=== PATIENT | male | born 1980 ===

== ENCOUNTER 2017-09-14 20:54 | Emergency (ER) | payer SELFPAY ==
--- NOTE | 2017-09-14 21:29 | ED PDOC ---
Arrival/HPI - General Chief Complaint: Alcohol Ingestion Time Seen by Provider: 09/14/17 21:19 Historian: Patient - History of Present Illness Narrative History of Present Illness (Text): 09/14/17 21:20 Sravan Fernandez who presents to the Emergency department brought in by EMS for public intoxication tonight. Patient found inebriated outside, admits to drinking alcohol. Limited HPI and ROS secondary to patient's intoxication. Time/Duration: Other (tonight) Symptom Onset: Gradual Symptom Course: Unchanged Activities at Onset: Light Context: Street Past Medical History - Provider Review Nursing Documentation Reviewed: Yes - Psychiatric Hx Substance Use: No Family/Social History - Physician Review Nursing Documentation Reviewed: Yes Family/Social History: Unknown Family HX Smoking Status: Unknown If Ever Smoked Hx Alcohol Use: Yes Hx Substance Use: No Allergies/Home Meds Allergies/Adverse Reactions: Allergies Unobtainable Allergy (Verified 09/14/17 21:09) Home Medications: Home Meds Medication Instructions Recorded Confirmed No Known Home Med 09/15/17 09/15/17 Review of Systems - Review of Systems Systems not reviewed;Unavailable: Intoxicated Physical Exam Vital Signs Reviewed: Yes Vital Signs Temp Pulse Resp BP Pulse Ox 09/15/17 05:00 72 16 112/68 99 09/15/17 01:00 82 16 115/74 99 09/14/17 21:34 98.8 F 102 H 16 117/81 97 Temperature: Afebrile Blood Pressure: Normal Pulse: Regular Respiratory Rate: Normal Appearance: Positive for: Well-Appearing, Non-Toxic, Comfortable Pain Distress: None - Systems Exam Head: Present: Atraumatic, Normocephalic Pupils: Present: PERRL Extroacular Muscles: Present: EOMI Conjunctiva: Present: Normal Mouth: Present: Moist Mucous Membranes Neck: Present: Normal Range of Motion Respiratory/Chest: Present: Clear to Auscultation, Good Air Exchange. No: Respiratory Distress, Accessory Muscle Use Cardiovascular: Present: Regular Rate and Rhythm, Normal S1, S2. No: Murmurs Abdomen: Present: Normal Bowel Sounds. No: Tenderness, Distention, Peritoneal Signs Back: Present: Normal Inspection Upper Extremity: Present: Normal Inspection. No: Cyanosis, Edema Lower Extremity: Present: Normal Inspection. No: Edema Neurological: Present: GCS=15, CN II-XII Intact Skin: Present: Warm, Dry, Normal Color. No: Rashes Psychiatric: Present: Intoxicated Medical Decision Making ED Course and Treatment: 09/14/17 21:20 Impression: Sravan Fernandez brought in for alcohol intoxication tonight. Differential Diagnosis included but are not limited to: alcohol intoxication Plan: -- Reassess and disposition Progress Notes: 09/15/17 05:50 Pt awake, alert, ambulating with steady gait. In stable condition, clinically sober. Pt stable for d/c. - Scribe Statement The provider has reviewed the documentation as recorded by the Scribchiquita Quiroz All medical record entries made by the Scribe were at my direction and personally dictated by me. I have reviewed the chart and agree that the record accurately reflects my personal performance of the history, physical exam, medical decision making, and the department course for this patient. I have also personally directed, reviewed, and agree with the discharge instructions and disposition. Disposition/Present on Arrival - Present on Arrival Any Indicators Present on Arrival: No History of DVT/PE: No History of Uncontrolled Diabetes: No Urinary Catheter: No History of Decub. Ulcer: No History Surgical Site Infection Following: None - Disposition Have Diagnosis and Disposition been Completed?: Yes Diagnosis: Alcohol intoxication Disposition: HOME/ ROUTINE Disposition Time: 05:52 Patient Plan: Discharge Condition: GOOD Discharge Instructions (ExitCare): Alcohol Intoxication (ED) Referrals: Alcoholics Anonymous [Outside] - Follow up with primary Forms: [employer] (Hebrew)
[2017-09-14 21:35] VITALS: RESP 16; TEMP 98.8
[2017-09-15 06:02] VITALS: O2SAT 99
[2017-09-15 06:03] VITALS: BP 112/68; PULSE 72
== END 2017-09-15 06:30 | disposition home or self-care (01) ==
LOC: ED 20:54
DX: F10.129 Alcohol abuse with intoxication, unspecified (principal); Y90.9 Presence of alcohol in blood, level not specified

== ENCOUNTER 2017-09-24 01:01 | Emergency (ER) | payer SELFPAY ==
[2017-09-24 01:49] VITALS: RESP 18; TEMP 98.3; BMI 25.7
--- NOTE | 2017-09-24 02:09 | ED PDOC ---
Arrival/HPI - General Chief Complaint: Headache Time Seen by Provider: 09/24/17 01:08 Historian: Patient - History of Present Illness Narrative History of Present Illness (Text): 09/24/17 02:09 John Brown is a 36 year old male, whose past medical history includes alcohol abuse, who presents to the Emergency department complaining of bilateral ear pain and headache since yesterday. Patient denies any fever, chills, neck pain, dizziness, vision changes, rhinorrhea, sore throat, chest pain, nausea, vomiting, diarrhea, back pain, or any other complaints. Time/Duration: Other (yesterday) Symptom Onset: Gradual Symptom Course: Unchanged Activities at Onset: Light Past Medical History - Provider Review Nursing Documentation Reviewed: Yes - Psychiatric Hx Substance Use: No Family/Social History - Physician Review Nursing Documentation Reviewed: Yes Family/Social History: Unknown Family HX Smoking Status: Light Smoker < 10 Cigarettes Daily Hx Alcohol Use: Yes Frequency of alcohol use: Daily Hx Substance Use: No Allergies/Home Meds Allergies/Adverse Reactions: Allergies No Known Allergies Allergy (Verified 09/24/17 01:29) Review of Systems - Physician Review All systems were reviewed & negative as marked: Yes - Review of Systems Constitutional: Normal. absent: Fevers Eyes: Normal ENT: Other (+bilateral ear pain) Respiratory: Normal. absent: SOB, Cough Cardiovascular: Normal. absent: Chest Pain Gastrointestinal: Normal. absent: Abdominal Pain, Diarrhea, Nausea, Vomiting Genitourinary Male: Normal. absent: Dysuria, Frequency, Hematuria, Urinary Output Changes Musculoskeletal: Normal. absent: Back Pain, Neck Pain Skin: Normal. absent: Rash Neurological: Headache. absent: Dizziness Endocrine: Normal Hemo/Lymphatic: Normal Psychiatric: Normal Physical Exam Vital Signs Reviewed: Yes Vital Signs Temp Pulse Resp BP Pulse Ox 09/24/17 01:35 98.3 F 88 18 154/107 H 100 Temperature: Afebrile Blood Pressure: Hypertensive Pulse: Regular Respiratory Rate: Normal Appearance: Positive for: Well-Appearing, Non-Toxic, Comfortable Pain Distress: None Mental Status: Positive for: Alert and Oriented X 3 - Systems Exam Head: Present: Atraumatic, Normocephalic Pupils: Present: PERRL Extroacular Muscles: Present: EOMI Conjunctiva: Present: Normal Ears: Present: Erythema (Erythema to bilateral ). No: TM Bulging, Fluid Mouth: Present: Moist Mucous Membranes Pharnyx: Present: Normal. No: ERYTHEMA, EXUDATE, TONSILS ENLARGED, Peritonsilar Swelling, Uvular Deviation, Muffled/Hoarse Voice (Bilateram TM erythema), Strider, Soft Palate/Uvular Edema Nose (External): Present: Atraumatic Nose (Internal): Present: Normal Inspection Neck: Present: Normal Range of Motion Respiratory/Chest: Present: Clear to Auscultation, Good Air Exchange. No: Respiratory Distress, Accessory Muscle Use Cardiovascular: Present: Regular Rate and Rhythm, Normal S1, S2. No: Murmurs Abdomen: Present: Normal Bowel Sounds. No: Tenderness, Distention, Peritoneal Signs Back: Present: Normal Inspection Upper Extremity: Present: Normal Inspection. No: Cyanosis, Edema Lower Extremity: Present: Normal Inspection. No: Edema Neurological: Present: GCS=15, CN II-XII Intact, Speech Normal Skin: Present: Warm, Dry, Normal Color. No: Rashes Psychiatric: Present: Alert, Oriented x 3, Normal Insight, Normal Concentration Medical Decision Making ED Course and Treatment: 09/24/17 02:09 Impression: 36 year old male complaining of bilateral ear pain and headache since yesterday. Plan: -- CT Head w/o contrast -- Tylenol -- Reassess and disposition Prior Visits: Notes and results from previous visits were reviewed. On 09/14/2017, pt was seen in the Emergency department for public intoxication. Pt was d/c home. Progress Notes: 09/24/17 03:17 CT Head shows: No intracranial hemorrhage. No intracranial edema. No evidence of infarct. The sinuses and mastoid air cells and auditory canals are clear. IMPRESSION: No acute findings. 09/24/17 03:37 On re-evaluation, patient feels better and is in no acute distress. I have discussed the results and plan with the patient, who expresses understanding. Patient in agreement with plan to be discharged home. Patient is stable for discharge. Patient was instructed to follow up with physician or return if symptoms worsen or new concerning symptoms arise. - RAD Interpretation Radiology Orders: 09/24/17 02:09 HEAD W/O CONTRAST [CT] Stat Universal Winding Machine Operator: Radiologist - Medication Orders Current Medication Orders: Discontinued Medications Acetaminophen (Tylenol 325mg Tab) 650 mg PO STAT STA Stop: 09/24/17 02:11 Last Admin: 09/24/17 02:18 Dose: 650 mg MAR Pain/Vitals Document 09/24/17 02:18 AD (Rec: 09/24/17 02:18 AD [id number]) Presence of Pain Presence of Pain Yes Pain Scale Used Pain Scale Used Numeric Location Pain Location Body Tape Keller Operator Intensity 8 Scale Used Numeric Pain Behavior Facial Grimacing Azithromycin (Zithromax) 500 mg PO ONCE STA PRN Reason: Protocol Stop: 09/24/17 03:37 - Scribe Statement The provider has reviewed the documentation as recorded by the Kirsten Quiroz Provider Scribe Attestation: All medical record entries made by the Scribe were at my direction and personally dictated by me. I have reviewed the chart and agree that the record accurately reflects my personal performance of the history, physical exam, medical decision making, and the department course for this patient. I have also personally directed, reviewed, and agree with the discharge instructions and disposition. Disposition/Present on Arrival - Present on Arrival Any Indicators Present on Arrival: No History of DVT/PE: No History of Uncontrolled Diabetes: No Urinary Catheter: No History of Decub. Ulcer: No History Surgical Site Infection Following: None - Disposition Have Diagnosis and Disposition been Completed?: Yes Diagnosis: Otitis media, Headache Disposition: HOME/ ROUTINE Disposition Time: 03:37 Patient Plan: Discharge Patient Problems: Current Active Problems Problem Status Onset Headache Acute Otitis media Acute Condition: GOOD Discharge Instructions (ExitCare): Tension Headache (ED), Otitis Media (ED) Additional Instructions: Meds as prescribed/follow up with your doctor this week Prescriptions: Ibuprofen [Motrin] 400 mg PO Q6 PRN #16 tab PRN Reason: Headache Azithromycin [Zithromax] 250 mg PO DAILY #6 tab Forms: [employer] (Malay)
--- NOTE | 2017-09-24 03:14 | CT ---
EXAM: CT Head Without Intravenous Contrast EXAM DATE/TIME: 09/24/2017 2:09 AM CLINICAL HISTORY: 36 years old, male; Pain; Headache; Headache not specified; Additional info: Headache, per pt headache bilateral ears TECHNIQUE: Axial computed tomography images of the head/brain without intravenous contrast. All CT scans at this facility use one or more dose reduction techniques, viz.: automated exposure control; ma/kV adjustment per patient size (including targeted exams where dose is matched to indication; i.e. head); or iterative reconstruction technique. Coronal and sagittal reformatted images were created and reviewed. COMPARISON: No relevant prior studies available. FINDINGS: No intracranial hemorrhage. No intracranial edema. No evidence of infarct. The sinuses and mastoid air cells and auditory canals are clear. IMPRESSION: No acute findings.
[2017-09-24 06:05] VITALS: BP 148/92; PULSE 72; O2SAT 100
== END 2017-09-24 05:59 | disposition home or self-care (01) ==
LOC: ED 01:01
DX: R51 Headache (principal); H66.93 Otitis media, unspecified, bilateral; F17.210 Nicotine dependence, cigarettes, uncomplicated

== ENCOUNTER 2017-11-07 15:28 | Emergency (ER) | payer SELFPAY ==
[2017-11-07 15:29] VITALS: BMI 25.7
--- NOTE | 2017-11-07 16:53 | ED PDOC ---
Arrival/HPI - General Chief Complaint: Alcohol Ingestion Time Seen by Provider: 11/07/17 16:10 Historian: EMS EM Caveat: Intoxicated - History of Present Illness Narrative History of Present Illness (Text): 11/07/17 16:50 36 year old male, with past medical history of alcohol abuse, presents to the Emergency department via EMS for intoxication prior to arrival. As per EMS, patient was found on the street lying, clinically intoxicated. Patient has no history or complaints due to intoxication. At bedside, patient appears lethargic and responds to physical stimulus. Patient has no evidence of trauma or injury. Time/Duration: Prior to Arrival Symptom Onset: Gradual Symptom Course: Unchanged Activities at Onset: Light Context: Street Past Medical History - Provider Review Nursing Documentation Reviewed: Yes - Infectious Disease Hx of Infectious Diseases: None - Psychiatric Hx Substance Use: No Family/Social History - Physician Review Nursing Documentation Reviewed: Yes Family/Social History: No Known Family HX Smoking Status: Unknown If Ever Smoked Hx Alcohol Use: Yes Frequency of alcohol use: Daily Hx Substance Use: No Allergies/Home Meds Allergies/Adverse Reactions: Allergies No Known Allergies Allergy (Verified 11/07/17 15:57) Home Medications: Home Meds Medication Instructions Recorded Confirmed No Known Home Med 11/07/17 11/07/17 Review of Systems - Physician Review All systems were reviewed & negative as marked: Yes - Review of Systems Systems not reviewed;Unavailable: Intoxicated Constitutional: Other (lethargic due to intoxication) Neurological: Speech Changes (due to intoxication) Psychiatric: Other (Intoxicated ) Physical Exam Vital Signs Reviewed: Yes Vital Signs Temp Pulse Resp BP Pulse Ox 11/07/17 16:10 98.0 F 78 22 107/59 L 99 Temperature: Afebrile Blood Pressure: Hypotensive Pulse: Regular Respiratory Rate: Normal Appearance: Positive for: Other (Intoxicated) Pain Distress: None Mental Status: Positive for: Lethargic (Very lethargic with response to pain stimulus) - Systems Exam Head: Present: Atraumatic, Normocephalic Pupils: Present: PERRL Extroacular Muscles: Present: EOMI Conjunctiva: Present: Normal Mouth: Present: Moist Mucous Membranes Neck: Present: Normal Range of Motion Respiratory/Chest: Present: Clear to Auscultation, Good Air Exchange. No: Respiratory Distress, Accessory Muscle Use Cardiovascular: Present: Regular Rate and Rhythm, Normal S1, S2. No: Murmurs Abdomen: Present: Normal Bowel Sounds. No: Tenderness, Distention, Peritoneal Signs Back: Present: Normal Inspection Upper Extremity: Present: Normal Inspection. No: Cyanosis, Edema Lower Extremity: Present: Normal Inspection. No: Edema Neurological: Present: GCS=15, CN II-XII Intact, Other (Clinically intoxicated, nonfocal therefore non-verbal. Unable to ambulate. Moves spontaneously and responds to pain stimuli.) Skin: Present: Warm, Dry, Normal Color, Other (No evidence of inury or trauma. ) . No: Rashes Psychiatric: Present: Intoxicated, Lethargic Medical Decision Making ED Course and Treatment: 11/07/17 16:58 Impression: 36 year old male presents to the Emergency department for alcohol intoxication. Differential Diagnosis included but are not limited to: Alcohol Intoxication Plan: -- Reassess and disposition Progress Notes: 11/07/17 17:31 awake alert and ambulatory; Friend is here to escort patient home. IMproved status. D/C stable. - Scribe Statement The provider has reviewed the documentation as recorded by the Scribe Debby Gibbs. All medical record entries made by the Scribe were at my direction and personally dictated by me. I have reviewed the chart and agree that the record accurately reflects my personal performance of the history, physical exam, medical decision making, and the department course for this patient. I have also personally directed, reviewed, and agree with the discharge instructions and disposition. Disposition/Present on Arrival - Present on Arrival Any Indicators Present on Arrival: No History of DVT/PE: No History of Uncontrolled Diabetes: No Urinary Catheter: No History of Decub. Ulcer: No History Surgical Site Infection Following: None - Disposition Have Diagnosis and Disposition been Completed?: Yes Diagnosis: Alcohol intoxication Disposition: HOME/ ROUTINE Disposition Time: 17:35 Patient Plan: Discharge Condition: IMPROVED Forms: [employer] (Luxembourgish)
[2017-11-07 17:43] VITALS: BP 118/76; PULSE 88; RESP 18; TEMP 98; O2SAT 98
== END 2017-11-07 17:44 | disposition home or self-care (01) ==
LOC: ED 15:28
DX: F10.129 Alcohol abuse with intoxication, unspecified (principal); Y90.9 Presence of alcohol in blood, level not specified

== ENCOUNTER 2017-12-08 17:14 | Emergency (ER) | payer SELFPAY ==
[2017-12-08 17:15] VITALS: BMI 25.7
[2017-12-08 17:38] VITALS: RESP 18
[2017-12-08] MEDS ORDERED: Sodium Chloride 0.9% 1,000 ML IV STA (17:43)
--- NOTE | 2017-12-08 17:47 | ED PDOC ---
Arrival/HPI - General Historian: EMS EM Caveat: Intoxicated <Alfred Saavedra - Last Filed: 12/08/17 18:10> <Augustus Wren - Last Filed: 12/08/17 22:33> - General Chief Complaint: Alcohol Ingestion Time Seen by Provider: 12/08/17 17:30 - History of Present Illness Narrative History of Present Illness (Text): 12/08/17 17:45 Patient is a 36M with a long history of being admitted for alcohol intoxication comes to the ED brought in by ambulance after being found intoxicated on the street. Patient states that he was drinking beer after being depressed out some female friend of his. 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 States he wants to stop drinking and wants to be in some sort of rehab facility. Patient is complaining of head pain and neck pain. Denies any fall but his history is unreliable at this time. (Alfred Saavedra) Past Medical History - Infectious Disease Hx of Infectious Diseases: None - Psychiatric Hx Substance Use: No <Alfred Saavedra - Last Filed: 12/08/17 18:10> Family/Social History Family/Social History: Unknown Family HX Smoking Status: Unknown If Ever Smoked Hx Alcohol Use: Yes Frequency of alcohol use: Daily Hx Substance Use: No <Alfred Saavedra - Last Filed: 12/08/17 18:10> Allergies/Home Meds <Alfred Saavedra - Last Filed: 12/08/17 18:10> <Augustus Wren - Last Filed: 12/08/17 22:33> Allergies/Adverse Reactions: Allergies No Known Allergies Allergy (Verified 12/08/17 17:31) Home Medications: Home Meds Medication Instructions Recorded Confirmed No Known Home Med 11/07/17 12/08/17 Physical Exam - Physical Exam Physical Exam Limitations: Intoxication Vital Signs Reviewed: Yes Temperature: Afebrile Blood Pressure: Hypertensive Pulse: Tachycardic Respiratory Rate: Normal Appearance: Positive for: Ill-Appearing Pain Distress: None Mental Status: Positive for: Confused - Systems Exam Head: Present: Atraumatic, Normocephalic. No: Contusion, Swelling, Ecchymosis, Abrasion, Laceration Pupils: Present: PERRL. No: Sluggish, Non-Reactive, Pinpoint Extroacular Muscles: Present: EOMI Conjunctiva: Present: Normal. No: Injected, Icteric Ears: Present: Normal Mouth: Present: Moist Mucous Membranes, Normal Lips, Normal Tounge, Normal Teeth. No: Dry, Drooling, Trismus Nose (External): Present: Atraumatic. No: Abrasion, Contusion, Laceration, Lesions Nose (Internal): Present: Normal Inspection, No Active Bleeding Neck: Present: Normal Range of Motion, Trachea Midline. No: Meningeal Signs, MIDLINE TENDERNESS, Paraspinal Tenderness, JVD, Lymphadenopathy Respiratory/Chest: Present: Clear to Auscultation, Good Air Exchange. No: Respiratory Distress, Accessory Muscle Use, Wheezes, Decreased Breath Sounds, Rales, Retracting, Rhonchi, Tachypneic, Tender to Palpation Cardiovascular: Present: Normal S1, S2, Tachycardic. No: Regular Rate and Rhythm, Murmurs, Irregular Rhythm, Bradycardic, Rub, Gallop, Muffled Abdomen: Present: Tenderness (tender to deep palpation in the midline), Normal Bowel Sounds. No: Distention, Peritoneal Signs, Rebound, Guarding, McBurney's Point Tender, Hernias, Feeding Tubes, Ostomy Tubes, Mass/Organomegaly, Scars Upper Extremity: Present: Normal Inspection, Normal ROM, NORMAL PULSES. No: Cyanosis, Edema, Tenderness, Swelling, Erythema, Neurovascularly Intact Lower Extremity: Present: Normal Inspection, NORMAL PULSES, Neurovascularly Intact. No: Edema, CALF TENDERNESS, Tenderness, Swelling, Erythema Neurological: Present: GCS=15, Motor Func Grossly Intact Skin: Present: Warm, Dry, Normal Color. No: Rashes, Diaphoretic, Erythematous, Induration, Hot, Cold, Pale, Laceration, Abscess, Abrasion, Other Lymphatic: No: Cervical Adenopathy Psychiatric: Present: Alert <Alfred Saavedra - Last Filed: 12/08/17 18:10> Vital Signs Temp Pulse Resp BP Pulse Ox 12/08/17 21:53 99 H 18 139/92 H 98 12/08/17 19:56 98 H 18 149/99 H 98 12/08/17 18:06 97.9 F 12/08/17 17:34 109 H 18 151/110 H 97 Medical Decision Making <Alfred Saavedra - Last Filed: 12/08/17 18:10> <Augustus Wren - Last Filed: 12/08/17 22:33> ED Course and Treatment: 12/08/17 20:58 Patient seen and evaluated with medical office secretary. Patient is arousable. Denies injury or trauma. Admits to alcohol use. On exam, he will follow commands, move all extremities well. Tachycardic but this improved after iv fluids. He denies abdominal pain with serial exams. Not tremulous. Not hyperreflexive. Will observe in ED, hydrate. EKG reviewed. No prior for comparison. Patient denies chest pain or sob. Plan to observe until medically clear, plan PES evaluation when medically clear. 12/08/17 22:20 Patient is resting. Friend is present. Denies nausea or vomiting. Denies chest pain or sob. Not tremulous. 12/08/17 22:[address] Moura for re-evaluation, monitoring of symptoms, final disposition. (Augustus Wren) - Lab Interpretations Lab Results: 12/08/17 17:50 12/08/17 17:50 Lab Results 12/08/17 17:50: Alcohol, Quantitative 399 H* 12/08/17 17:50: Urine Color Yellow, Urine Appearance Clear, Urine pH 6.0, Ur Specific [place] <= 1.005, Urine Protein Negative, Urine Glucose (UA) Negative, Urine Ketones Negative, Urine Blood Trace-intact H, Urine Nitrate Negative, Urine Bilirubin Negative, Urine Urobilinogen 0.2, Ur Leukocyte Esterase Negative , Urine RBC 2 - 5, Urine WBC 0 - 2, Ur Epithelial Cells None, Urine Bacteria Mod 12/08/17 17:50: PT 10.8, INR 0.95, APTT 31.3 12/08/17 17:50: WBC 5.5, RBC 5.20, Hgb 16.3, Hct 46.2, MCV 88.8, MCH 31.3, MCHC 35.3, RDW 13.9, Plt Count 262, MPV 11.0, Gran % 47.9 L, Lymph % (Auto) 45.4 H, [place] % (Auto) 5.8, Eos % (Auto) 0.4 L, Baso % (Auto) 0.5, Gran # 2.62, Lymph # ( Auto) 2.5, [place] # (Auto) 0.3, Eos # (Auto) 0.0, Baso # (Auto) 0.03 12/08/17 17:50: Sodium 148, Potassium 3.8, Chloride 104, Carbon Dioxide 28, Anion Gap 19, BUN 9, Creatinine 0.7 L, Est GFR ( Amer) > 60, Est GFR (Non -Af Amer) > 60, Random Glucose 106, Calcium 9.5, Total Bilirubin 0.8, AST 64 H, ALT 68 H, Alkaline Phosphatase 74, Lactate Dehydrogenase 711 H, Total Creatine Kinase 252 H, CK-MB (CK-2) 1.3, CK-MB (CK-2) % Cancelled, Troponin I < 0.01, Total Protein 8.8 H, Albumin 4.8, Globulin 4.0, Albumin/Globulin Ratio 1.2, Lipase 135 - RAD Interpretation Radiology Orders: 12/08/17 18:03 CHEST PORTABLE [RAD] Stat - Medication Orders Current Medication Orders: Discontinued Medications Sodium Chloride (Sodium Chloride 0.9%) 1,000 mls @ 999 mls/hr IV .Q1H1M STA Stop: 12/08/17 18:43 Last Admin: 12/08/17 18:51 Dose: 999 mls/hr eMAR Start Stop Document 12/08/17 18:51 [facility] (Rec: 12/08/17 18:52 LM [id number]) Intravenous Solution Start Date 12/08/17 Start Time 18:51 End Date 12/08/17 End time 19:52 Total Infusion Time 61 Ondansetron HCl (Zofran Inj) 4 mg IVP STAT STA Stop: 12/08/17 18:14 Last Admin: 12/08/17 18:49 Dose: 4 mg IVP Administration Document 12/08/17 18:49 [facility] (Rec: 12/08/17 18:49 LM [id number]) Charges for Administration # of IVP Administrations 1 - PA / SPACE CONTROLLER / Resident Statement JENNY has reviewed & agrees with the documentation as recorded. JENNY has examined the patient and agrees with the treatment plan. <Alfred Saavedra - Last Filed: 12/08/17 18:10> Disposition/Present on Arrival - Present on Arrival Any Indicators Present on Arrival: No History of DVT/PE: No History of Uncontrolled Diabetes: No Urinary Catheter: No History of Decub. Ulcer: No History Surgical Site Infection Following: None <Alfred Saavedra - Last Filed: 12/08/17 18:10> - Disposition Have Diagnosis and Disposition been Completed?: Yes Disposition Time: 20:30 Patient Plan: Observation <Augustus Wren - Last Filed: 12/08/17 22:33> - Disposition Diagnosis: Alcohol intoxication Patient Problems: Current Active Problems Problem Status Onset Alcohol intoxication Acute Condition: FAIR Referrals: [facility] Profile Req, [Primary Care Provider] - Follow up with primary Forms: [employer] (Maltese)
[2017-12-08 18:13] LABS: BASO # 0.03 K/mm3 (0.0-2.0); BASO % 0.5 % (0.0-3.0); EOS % 0.4 % (1.5-5.0); GRAN # 2.62 (1.4-6.5); GRAN % 47.9 % (50.0-68.0); HEMOGLOBIN 16.3 g/dL (14.0-18.0); LYMPH # 2.5 (1.2-3.4); LYMPH % 45.4 % (22.0-35.0); MEAN CELL VOLUME 88.8 fl (80.0-105.0); MEAN CORPUSCULAR HEMOGLOBIN 31.3 pg (25.0-35.0); MEAN CORPUSCULAR HGB CONC 35.3 g/dl (31.0-37.0); MONO # 0.3 (0.1-0.6); MONO % 5.8 % (1.0-6.0); RBC 5.2 10^6/uL (3.5-6.1); RED CELL DISTRIBUTION WIDTH 13.9 % (11.5-14.5); URINE BILIRUBIN NEGATIVE (NEGATIVE); URINE BLOOD TRACE-INTACT (NEGATIVE); URINE GLUCOSE (UA) NEGATIVE (NEGATIVE); URINE LEUKOCYTE ESTERASE NEGATIVE Leu/uL (NEGATIVE); URINE PROTEIN NEGATIVE mg/dL (<30 mg/dL); URINE UROBILINOGEN 0.2 E.U./dL (<1 E.U./dL); WHITE BLOOD COUNT 5.5 10^3/ul (4.5-11.0)
[2017-12-08 18:15] LABS: URINE APPEARANCE CLEAR (CLEAR); URINE COLOR YELLOW (YELLOW)
[2017-12-08 18:25] LABS: URINE WBC 0 - 2 /hpf (0-6)
[2017-12-08 18:26] LABS: ALB/GLOB RATIO 1.2 (1.1-1.8); ALBUMIN 4.8 g/dL (3.0-4.8); ALT/SGPT 68 U/L (7-56); AST/SGOT 64 U/L (17-59); BLOOD UREA NITROGEN 9 mg/dL (7-21); CALCIUM 9.5 mg/dL (8.4-10.5); GFR AFRICAN-AMERICAN > 60; GFR NON-AFRICAN AMERICAN > 60; LIPASE 135 U/L (23-300); PROTHROMBIN TIME 10.8 SECONDS (9.4-12.5); URINE BACTERIA MOD (NEG)
[2017-12-08 18:27] LABS: INR 0.95 (0.93-1.08); PARTIAL THROMBOPLASTIN TIME 31.3 Seconds (25.1-36.5)
[2017-12-08 18:37] LABS: TROPONIN I < 0.01 ng/mL
[2017-12-08 18:43] LABS: CK-MB 1.3 ng/mL (0.0-3.6)
--- NOTE | 2017-12-09 07:25 | ED PDOC ---
Physical Exam Vital Signs Reviewed: Yes Vital Signs Temp Pulse Resp BP Pulse Ox 12/09/17 09:21 98 F 100 H 18 165/93 H 97 12/09/17 07:38 98.3 F 100 H 18 161/108 H 98 12/09/17 06:00 106 H 18 138/98 H 99 12/09/17 02:00 88 18 139/90 97 12/08/17 21:53 99 H 18 139/92 H 98 12/08/17 19:56 98 H 18 149/99 H 98 12/08/17 18:06 97.9 F 12/08/17 17:34 109 H 18 151/110 H 97 Temperature: Afebrile Blood Pressure: Hypertensive Pulse: Tachycardic Respiratory Rate: Normal Appearance: Positive for: Well-Appearing, Other (resting in bed, alert/awake, GCS = 15, oriented x 2 (not to date/time), responsive/cooperative) Pain Distress: None Finger Stick Blood Glucose: 95 - Systems Exam Head: Present: Atraumatic, Normocephalic Pupils: Present: PERRL, Other (sclera anicteric, no nystagmus, no photophobia) Extroacular Muscles: Present: EOMI Conjunctiva: Present: Normal Ears: Present: Normal Mouth: Present: Other Pharnyx: Present: Normal Nose (External): Present: Atraumatic Nose (Internal): Present: Normal Inspection Neck: Present: Normal Range of Motion, Trachea Midline. No: MIDLINE TENDERNESS Respiratory/Chest: Present: Clear to Auscultation, Good Air Exchange, Other ( CTA b/l, no w/r/r, no accessory muscle use noted, no tachypenia) Cardiovascular: Present: Regular Rate and Rhythm, Normal S1, S2. No: Murmurs Abdomen: Present: Normal Bowel Sounds, Other (well nourished male, no focal tenderness, no masses/rebound/guarding/rigidity, no contreras's sign, no mcburney' s point tenderness) Back: Present: Normal Inspection. No: CVA Tenderness, Midline Tenderness Upper Extremity: Present: Normal Inspection, Normal ROM, NORMAL PULSES, Neurovascularly Intact Lower Extremity: Present: Normal Inspection, NORMAL PULSES, Normal ROM, Neurovascularly Intact Neurological: Present: GCS=15, CN II-XII Intact, Speech Normal Skin: Present: Warm, Normal Color, Other (cap refill ~ 1 sec, no ulcerations, no petechiae) Psychiatric: Present: Alert, Oriented x 3 Medical Decision Making ED Course and Treatment: 12/09/17 07:21 Patient endorsed to me by Dr. Moura. Patient currently awaiting PES evaluation and sobriety, and to be dispositioned accordingly. 12/09/17 07:41 pt is now more awake pt does not remember how he got to the hospital pt states he did remember making statements about not wanting to live, no plans however pt denied Homicidal ideations; pt denied hallucinations - visual/tactile/ auditory pt is awaiting PES eval pt is medically cleared for psych eval 12/09/17 08:55 PES counselor at bedside and has evaluated patient, PES states patient is cleared from psych and is cleared for discharge home. 12/09/17 09:30 pt remained comfortable pt tolerated po pt states his headache is gone pt denied SI/HI pt is made aware of his medical results pt is encouraged fluid hydration pt is encouraged no more alcohol pt is aware that his blood pressure is elevated pt will f/u as directed pt will be discharged home Re-evaluation Time: 07:35 Reassessment Condition: Improving,but remains with symptoms - Lab Interpretations Lab Results: 12/08/17 17:50 12/08/17 17:50 Lab Results 12/09/17 07:50: POC Glucose (mg/dL) 104 12/08/17 17:50: Alcohol, Quantitative 399 H* 12/08/17 17:50: Urine Color Yellow, Urine Appearance Clear, Urine pH 6.0, Ur Specific [place] <= 1.005, Urine Protein Negative, Urine Glucose (UA) Negative, Urine Ketones Negative, Urine Blood Trace-intact H, Urine Nitrate Negative, Urine Bilirubin Negative, Urine Urobilinogen 0.2, Ur Leukocyte Esterase Negative , Urine RBC 2 - 5, Urine WBC 0 - 2, Ur Epithelial Cells None, Urine Bacteria Mod 12/08/17 17:50: PT 10.8, INR 0.95, APTT 31.3 12/08/17 17:50: WBC 5.5, RBC 5.20, Hgb 16.3, Hct 46.2, MCV 88.8, MCH 31.3, MCHC 35.3, RDW 13.9, Plt Count 262, MPV 11.0, Gran % 47.9 L, Lymph % (Auto) 45.4 H, [place] % (Auto) 5.8, Eos % (Auto) 0.4 L, Baso % (Auto) 0.5, Gran # 2.62, Lymph # ( Auto) 2.5, [place] # (Auto) 0.3, Eos # (Auto) 0.0, Baso # (Auto) 0.03 12/08/17 17:50: Sodium 148, Potassium 3.8, Chloride 104, Carbon Dioxide 28, Anion Gap 19, BUN 9, Creatinine 0.7 L, Est GFR ( Amer) > 60, Est GFR (Non -Af Amer) > 60, Random Glucose 106, Calcium 9.5, Total Bilirubin 0.8, AST 64 H, ALT 68 H, Alkaline Phosphatase 74, Lactate Dehydrogenase 711 H, Total Creatine Kinase 252 H, CK-MB (CK-2) 1.3, CK-MB (CK-2) % Cancelled, Troponin I < 0.01, Total Protein 8.8 H, Albumin 4.8, Globulin 4.0, Albumin/Globulin Ratio 1.2, Lipase 135 Interpretation: Abnormal lab values (elevated LFTs; elevated alcohol) - RAD Interpretation Narrative RAD Interpretations (Text): 12/09/17 09:32 HISTORY: weakness COMPARISON: No prior. FINDINGS: LUNGS: No active pulmonary disease. PLEURA: No significant pleural effusion identified, no pneumothorax apparent. CARDIOVASCULAR: The heart is normal in size. Mild vascular congestion OSSEOUS STRUCTURES: No significant abnormalities. VISUALIZED UPPER ABDOMEN: Normal. OTHER FINDINGS: None. IMPRESSION: No active disease. Radiology Orders: 12/08/17 18:03 CHEST PORTABLE [RAD] Stat Vegetable Sorter: Radiologist - Medication Orders Current Medication Orders: Discontinued Medications Acetaminophen (Tylenol 325mg Tab) 650 mg PO STAT STA Stop: 12/09/17 07:43 Last Admin: 12/09/17 07:54 Dose: 650 mg MAR Pain/Vitals Document 12/09/17 07:54 RAYMON (Rec: 12/09/17 07:55 RAYMON [id number]) Pain Reassessment Is This A Pain ReAssessment? Yes Sleep Is patient sleeping during reassessment? No Presence of Pain Presence of Pain Yes Pain Scale Used Pain Scale Used Numeric Location Left, Right or Bilateral Bilateral Pain Location Body Director Outpatient Services Description Intermittent Intensity 4 Scale Used Numeric Chlordiazepoxide (Librium) 50 mg PO STAT STA PRN Reason: Protocol Stop: 12/09/17 06:00 Last Admin: 12/09/17 06:00 Dose: 50 mg Folic Acid (Folic Acid) 1 mg PO STAT STA Stop: 12/09/17 07:45 Last Admin: 12/09/17 07:54 Dose: 1 mg Sodium Chloride (Sodium Chloride 0.9%) 1,000 mls @ 999 mls/hr IV .Q1H1M STA Stop: 12/08/17 18:43 Last Admin: 12/08/17 18:51 Dose: 999 mls/hr eMAR Start Stop Document 12/08/17 18:51 [facility] (Rec: 12/08/17 18:52 LM [id number]) Intravenous Solution Start Date 12/08/17 Start Time 18:51 End Date 12/08/17 End time 19:52 Total Infusion Time 61 Sodium Chloride (Sodium Chloride 0.9%) 1,000 mls @ 999 mls/hr IV .Q1H1M STA Stop: 12/09/17 08:42 Last Admin: 12/09/17 07:56 Dose: 999 mls/hr eMAR Start Stop Document 12/09/17 07:56 LA (Rec: 12/09/17 07:56 LA [id number]) Intravenous Solution Start Date 12/09/17 Start Time 07:56 Ondansetron HCl (Zofran Inj) 4 mg IVP STAT STA Stop: 12/08/17 18:14 Last Admin: 12/08/17 18:49 Dose: 4 mg IVP Administration Document 12/08/17 18:49 [facility] (Rec: 12/08/17 18:49 [facility] [id number]) Charges for Administration # of IVP Administrations 1 - Scribe Statement The provider has reviewed the documentation as recorded by the Kirsten Salas Provider Scribe Attestation: All medical record entries made by the Constanceibchiquita were at my direction and personally dictated by me. I have reviewed the chart and agree that the record accurately reflects my personal performance of the history, physical exam, medical decision making, and the department course for this patient. I have also personally directed, reviewed, and agree with the discharge instructions and disposition. Disposition/Present on Arrival - Present on Arrival Any Indicators Present on Arrival: No History of DVT/PE: No History of Uncontrolled Diabetes: No Urinary Catheter: No History of Decub. Ulcer: No History Surgical Site Infection Following: None - Disposition Have Diagnosis and Disposition been Completed?: Yes Diagnosis: Alcohol intoxication, Depression, Dehydration Disposition: HOME/ ROUTINE Disposition Time: 09:20 Patient Plan: Discharge Patient Problems: Current Active Problems Problem Status Onset Alcohol intoxication Acute Dehydration Acute Depression Acute Condition: FAIR Discharge Instructions (ExitCare): High Blood Pressure in Adults, Dehydration, Adult (DC), Depression, Adult (DC), Alcohol Abuse and Alcoholism (DC) Print Language: BRAZILIAN Additional Instructions: Make sure to see your doctor in 1-2 days DONT DRINK ALCOHOL DONT SMOKE if you smoke YOUR BLOOD Pressure is considered high, please see your doctor as soon as possible DRINK PLENTY OF FLUIDS RETURN TO ED IF worse pain, cant breath, persistent vomiting, high fever >101- 102 for hours, altered behavior, unable to urinate, heavy/persistent bleeding, slurr speech, facial changes, arm/leg weakness, cant walk, severe depression, suicidal/homicidal ideations, passing out, chest pain, or other medical emergencies Prescriptions: Famotidine [Pepcid] 20 mg PO BID #30 tab Referrals: Dominick Hansen, [Primary Care Provider] - Follow up with primary [facility] at [facility] [place] [Outside] - Follow up with primary [facility] [Outside] - Follow up with primary Forms: [employer] (Thai), [employer] (Tamazight)
[2017-12-09] MEDS ORDERED: Sodium Chloride 0.9% 1,000 ML IV STA (07:42)
--- NOTE | 2017-12-09 08:34 | RAD ---
HISTORY: weakness COMPARISON: No prior. FINDINGS: LUNGS: No active pulmonary disease. PLEURA: No significant pleural effusion identified, no pneumothorax apparent. CARDIOVASCULAR: The heart is normal in size. Mild vascular congestion OSSEOUS STRUCTURES: No significant abnormalities. VISUALIZED UPPER ABDOMEN: Normal. OTHER FINDINGS: None. IMPRESSION: No active disease.
[2017-12-09 09:22] VITALS: TEMP 98; O2SAT 97
[2017-12-09 09:27] VITALS: BP 165/93; PULSE 100
--- NOTE | 2017-12-09 15:49 | CARD ---
APPROVED REPORT EKG Measurement Heart [id number] <Conclusion> Normal sinus rhythm LVH by voltage ST elevations V2 , 3., uncertain significane. Suggest clinical correlation
== END 2017-12-09 09:34 | disposition home or self-care (01) ==
LOC: ED 17:14
DX: F10.129 Alcohol abuse with intoxication, unspecified (principal); Y90.8 Blood alcohol level of 240 mg/100 ml or more; F32.9 Major depressive disorder, single episode, unspecified; E86.0 Dehydration
CPT/HCPCS: 71045; 80053; 81001; 82550; 82553; 82948; 83615; 83690; 84484; 85025; 85610; 85730; 90791; 93005; 96361; 96374; 99285; G0480; J2405; J7040

== ENCOUNTER 2017-12-16 22:33 | Emergency (ER) | payer SELFPAY ==
[2017-12-16 22:43] VITALS: BMI 24.0
--- NOTE | 2017-12-16 23:07 | ED PDOC ---
Arrival/HPI - General Chief Complaint: Alcohol Ingestion Time Seen by Provider: 12/16/17 22:37 Historian: Patient - History of Present Illness Narrative History of Present Illness (Text): 12/16/17 23:07 John Brown is a 37 year old male, whose past medical history includes alcohol abuse, who presents to the Emergency department brought in by EMS for public intoxication tonight. Patient was found outside inebriated tonight and admits to drinking a few beers. Patient denies any fever, chills, chest pain, shortness of breath, nausea, vomiting, diarrhea, urinary symptoms, back pain, neck pain, headache, dizziness, or any other complaints. Symptom Onset: Gradual Symptom Course: Unchanged Activities at Onset: Light Context: Home Past Medical History - Provider Review Nursing Documentation Reviewed: Yes - Infectious Disease Hx of Infectious Diseases: None - Cardiac Hx Cardiac Disorders: No Hx Hypertension: No - Pulmonary Hx Tuberculosis: No - Neurological HX Cerebrovascular Accident: No Hx Seizures: No - Hematological/Oncological Hx Cancer: No - Genitourinary/Gynecological Hx Sexually Transmitted Diseases: No - Psychiatric Hx Substance Use: No Family/Social History - Physician Review Nursing Documentation Reviewed: Yes Family/Social History: Unknown Family HX Smoking Status: Unknown If Ever Smoked Hx Alcohol Use: Yes Hx Substance Use: No Allergies/Home Meds Allergies/Adverse Reactions: Allergies No Known Allergies Allergy (Verified 12/08/17 17:31) Home Medications: Home Meds Medication Instructions Recorded Confirmed No Known Home Med 12/16/17 12/16/17 Review of Systems - Physician Review All systems were reviewed & negative as marked: Yes - Review of Systems Constitutional: Normal. absent: Fevers Eyes: Normal ENT: Normal Respiratory: Normal. absent: SOB, Cough Cardiovascular: Normal. absent: Chest Pain Gastrointestinal: Normal. absent: Abdominal Pain, Diarrhea, Nausea, Vomiting Genitourinary Male: Normal. absent: Dysuria, Frequency, Hematuria, Urinary Output Changes Musculoskeletal: Normal. absent: Back Pain, Neck Pain Skin: Normal. absent: Rash Neurological: Normal. absent: Headache, Dizziness Endocrine: Normal Hemo/Lymphatic: Normal Psychiatric: Other (+alcohol abuse) Physical Exam Vital Signs Reviewed: Yes Vital Signs Temp Pulse Resp BP Pulse Ox 12/17/17 03:04 92 H 18 135/78 100 12/16/17 22:42 98.1 F 96 H 17 130/80 98 Temperature: Afebrile Blood Pressure: Normal Pulse: Regular Respiratory Rate: Normal Appearance: Positive for: Well-Appearing, Comfortable Pain Distress: None Mental Status: Positive for: Alert and Oriented X 3 - Systems Exam Head: Present: Atraumatic, Normocephalic Pupils: Present: PERRL Extroacular Muscles: Present: EOMI Conjunctiva: Present: Normal Mouth: Present: Moist Mucous Membranes Neck: Present: Normal Range of Motion Respiratory/Chest: Present: Clear to Auscultation, Good Air Exchange. No: Respiratory Distress, Accessory Muscle Use Cardiovascular: Present: Regular Rate and Rhythm, Normal S1, S2. No: Murmurs Abdomen: Present: Normal Bowel Sounds. No: Tenderness, Distention, Peritoneal Signs Back: Present: Normal Inspection Upper Extremity: Present: Normal Inspection. No: Cyanosis, Edema Lower Extremity: Present: Normal Inspection. No: Edema Neurological: Present: GCS=15, CN II-XII Intact, Speech Normal Skin: Present: Warm, Dry, Normal Color. No: Rashes Psychiatric: Present: Alert, Oriented x 3, Normal Insight, Normal Concentration Medical Decision Making ED Course and Treatment: 12/16/17 23:07 Impression: 37 year old male brought in by EMS for alcohol intoxication tonight. Differential Diagnosis included but are not limited to: alcohol intoxication Plan: -- Reassess and disposition Progress Notes: 12/17/17 06:03 Pt. awake,alert ,sober with steady gait. - Lab Interpretations Lab Results: Lab Results 12/16/17 22:43: POC Glucose (mg/dL) 108 - Scribe Statement The provider has reviewed the documentation as recorded by the Scribchiquita Quiroz All medical record entries made by the Scribe were at my direction and personally dictated by me. I have reviewed the chart and agree that the record accurately reflects my personal performance of the history, physical exam, medical decision making, and the department course for this patient. I have also personally directed, reviewed, and agree with the discharge instructions and disposition. Disposition/Present on Arrival - Present on Arrival Any Indicators Present on Arrival: No History of DVT/PE: No History of Uncontrolled Diabetes: No Urinary Catheter: No History of Decub. Ulcer: No History Surgical Site Infection Following: None - Disposition Have Diagnosis and Disposition been Completed?: Yes Diagnosis: Alcohol intoxication Disposition: HOME/ ROUTINE Disposition Time: 06:03 Patient Plan: Discharge Patient Problems: Current Active Problems Problem Status Onset Alcohol intoxication Acute Condition: GOOD Referrals: Alcoholics Anonymous [Outside] - Follow up with primary Forms: [facility] (Kazakh)
[2017-12-17 06:13] VITALS: BP 134/87; PULSE 81; RESP 16; TEMP 97.8; O2SAT 96
== END 2017-12-17 07:10 | disposition home or self-care (01) ==
LOC: ED 22:33
DX: F10.129 Alcohol abuse with intoxication, unspecified (principal)

== ENCOUNTER 2018-04-08 21:01 | Emergency (ER) | payer SELFPAY ==
[2018-04-08 21:06] VITALS: TEMP 98.3
[2018-04-08 21:10] VITALS: BMI 28.3
--- NOTE | 2018-04-08 21:36 | ED PDOC ---
Arrival/HPI - General Chief Complaint: Alcohol Ingestion Time Seen by Provider: 04/08/18 21:35 EM Caveat: Intoxicated - History of Present Illness Narrative History of Present Illness (Text): 04/08/18 21:35 37 year old male, whose past medical history includes alcohol abuse, presents to the emergency department by EMS for public alcohol intoxication tonight. Patient was found in the park intoxicated. Patient did not respond to any questions. HPI and ROS limited due to patient's state of intoxication. Past Medical History - Provider Review Nursing Documentation Reviewed: Yes - Infectious Disease Hx of Infectious Diseases: None - Cardiac Hx Cardiac Disorders: No - Pulmonary Hx Respiratory Disorders: No - Neurological Hx Neurological Disorder: No - HEENT Hx HEENT Disorder: No - Renal Hx Renal Disorder: No - Endocrine/Metabolic Hx Endocrine Disorders: No - Hematological/Oncological Hx Blood Disorders: No - Integumentary Hx Dermatological Disorder: No - Musculoskeletal/Rheumatological Hx Musculoskeletal Disorders: No - Gastrointestinal Hx Gastrointestinal Disorders: No - Genitourinary/Gynecological Hx Genitourinary Disorders: No - Psychiatric Hx Psychophysiologic Disorder: No Hx Substance Use: No Family/Social History - Physician Review Nursing Documentation Reviewed: Yes Family/Social History: No Known Family HX Smoking Status: Unknown If Ever Smoked Hx Alcohol Use: Yes Frequency of alcohol use: Daily Hx Substance Use: No Allergies/Home Meds Allergies/Adverse Reactions: Allergies No Known Allergies Allergy (Verified 04/08/18 21:05) Home Medications: Home Meds Medication Instructions Recorded Confirmed No Known Home Med 12/16/17 04/08/18 Review of Systems - Physician Review All systems were reviewed & negative as marked: Yes - Review of Systems Systems not reviewed;Unavailable: Intoxicated Physical Exam Vital Signs Reviewed: Yes Vital Signs Temp Pulse Resp BP Pulse Ox 04/09/18 06:04 75 19 124/82 99 04/09/18 03:00 68 12 142/86 100 04/08/18 23:35 80 21 159/93 H 99 04/08/18 21:05 98.3 F 90 20 159/88 H 96 Temperature: Afebrile Blood Pressure: Hypertensive Pulse: Regular Respiratory Rate: Normal Appearance: Positive for: Well-Appearing, Comfortable, Other (Disheveled) Pain Distress: None Mental Status: Positive for: other (Alert. Makes eye contact but does not answer or follow any commands) - Systems Exam Head: Present: Atraumatic, Normocephalic. No: Other (No head injuries) Pupils: Present: PERRL Extroacular Muscles: Present: EOMI Conjunctiva: Present: Normal Mouth: Present: Moist Mucous Membranes Neck: Present: Normal Range of Motion Respiratory/Chest: Present: Clear to Auscultation, Good Air Exchange. No: Respiratory Distress, Accessory Muscle Use Cardiovascular: Present: Regular Rate and Rhythm, Normal S1, S2. No: Murmurs Abdomen: No: Tenderness, Distention, Peritoneal Signs Back: Present: Normal Inspection Upper Extremity: Present: Normal Inspection. No: Cyanosis, Edema Lower Extremity: Present: Normal Inspection. No: Edema Neurological: Present: GCS=15, CN II-XII Intact Skin: Present: Warm, Dry, Normal Color. No: Rashes Psychiatric: Present: Alert, Intoxicated (Makes eye contact, but does not answer or follow commends.) Medical Decision Making ED Course and Treatment: 04/08/18 21:35 Impression: 37 year old male presents for public alcohol intoxication. Differential Diagnosis included but are not limited to: EtOH intoxication Plan: -- Reassess and disposition Prior Visits: Notes and results from previous visits were reviewed. Patient was last seen in the emergency department on 12/16/17 presents for alcohol intoxication. Patient was discharged. Progress Notes: 04/09/18 05:58 Patient is awake and oriented x3. Patient is walking with a steady gait and stable for discharge. On re-evaluation, is in no acute distress. Patient in agreement with plan to be discharged home. Patient is stable for discharge. Patient was instructed to follow up with physician or return if symptoms worsen or new concerning symptoms arise. - Scribe Statement The provider has reviewed the documentation as recorded by the Kirsten Robison Provider Scribe Attestation: All medical record entries made by the Kirsten were at my direction and personally dictated by me. I have reviewed the chart and agree that the record accurately reflects my personal performance of the history, physical exam, medical decision making, and the department course for this patient. I have also personally directed, reviewed, and agree with the discharge instructions and disposition. Disposition/Present on Arrival - Present on Arrival Any Indicators Present on Arrival: No History of DVT/PE: No History of Uncontrolled Diabetes: No Urinary Catheter: No History of Decub. Ulcer: No History Surgical Site Infection Following: None - Disposition Have Diagnosis and Disposition been Completed?: Yes Diagnosis: Alcohol abuse Disposition: HOME/ ROUTINE Disposition Time: 06:04 Condition: FAIR Discharge Instructions (ExitCare): Alcohol Abuse and Alcoholism (DC) Print Language: CYMRO Additional Instructions: BOOM GALLARDO, thank you for letting us take care of you today. Your provider was Sania Michele MD and you were treated for ETOH. The emergency medical care you received today was directed at your acute symptoms. If you were prescribed any medication, please fill it and take as directed. It may take several days for your symptoms to resolve. Return to the Emergency Department if your symptoms worsen, do not improve, or if you have any other problems. Please contact your doctor or call one of the physicians/clinics you have been referred to that are listed on the Patient Visit Information form that is included in your discharge packet. Bring any paperwork you were given at discharge with you along with any medications you are taking to your follow up visit. Our treatment cannot replace ongoing medical care by a primary care provider outside of the emergency department. Thank you for allowing the [facility] team to be part of your care today. If you had an X-Ray or CT scan: A Radiologist will review the ED reading if any change in treatment is needed we will contact you. If you had a blood, urine, or wound culture: It will take several days for the results, if any change in treatment is needed we will contact you. If you had an STI test: It will take 48 hours for the results. Please call after 1 week if you have not heard back. Forms: [facility] (Luxembourgish)
[2018-04-09 02:26] VITALS: O2SAT 99
[2018-04-09 06:05] VITALS: BP 124/82; PULSE 75; RESP 19
== END 2018-04-09 06:04 | disposition home or self-care (01) ==
LOC: ED 21:01
DX: F10.10 Alcohol abuse, uncomplicated (principal)

== ENCOUNTER 2018-04-28 23:53 | Emergency (ER) | payer SELFPAY ==
[2018-04-29 00:05] VITALS: BMI 34.0
[2018-04-29 00:07] VITALS: TEMP 98.3
--- NOTE | 2018-04-29 00:18 | ED PDOC ---
Arrival/HPI - General Time Seen by Provider: 04/29/18 00:12 Historian: Patient - History of Present Illness Narrative History of Present Illness (Text): 04/29/18 00:15 A 37 year old male, whose past medical history includes alcohol abuse, presents to the emergency department for alcohol intoxication. Patient admits to drinking tonight. Mentions no symptomatic complaints. Lmited HPI and ROS due to intoxication. No PMD Past Medical History - Provider Review Nursing Documentation Reviewed: Yes - Infectious Disease Hx of Infectious Diseases: None - Cardiac Hx Cardiac Disorders: No - Pulmonary Hx Respiratory Disorders: No - Neurological Hx Neurological Disorder: No - HEENT Hx HEENT Disorder: No - Renal Hx Renal Disorder: No - Endocrine/Metabolic Hx Endocrine Disorders: No - Hematological/Oncological Hx Blood Disorders: No - Integumentary Hx Dermatological Disorder: No - Musculoskeletal/Rheumatological Hx Musculoskeletal Disorders: No - Gastrointestinal Hx Gastrointestinal Disorders: No - Genitourinary/Gynecological Hx Genitourinary Disorders: No - Psychiatric Hx Psychophysiologic Disorder: No Hx Substance Use: No Family/Social History - Physician Review Nursing Documentation Reviewed: Yes Family/Social History: No Known Family HX Smoking Status: Unknown If Ever Smoked Hx Alcohol Use: Yes Hx Substance Use: No Allergies/Home Meds Allergies/Adverse Reactions: Allergies No Known Allergies Allergy (Verified 04/08/18 21:05) Home Medications: Home Meds Medication Instructions Recorded Confirmed No Known Home Med 12/16/17 04/29/18 Review of Systems - Review of Systems Systems not reviewed;Unavailable: Intoxicated Physical Exam - Physical Exam Narrative Physical Exam (Text): Gen: VS reviewed, alert, well developed, well nourished, nontoxic, mild distress. ENT: normal pharynx. Eye: EOMI, PERRL. Neck: no JVD, supple, no adenopathy. CV: regular rate, regular rhythm, no rubs, no murmur, no gallops, S1, S2, pulses equal and strong. Pulm: no distress, clear to auscultation, no wheeze, no rhonchi, breath sounds equal, no rales. Abd: soft, nontender, no guarding, no rebound, no rigidity, normal bowel sounds. Ext: no edema. Skin: good color, no rash, no cyanosis. Psych: intoxicated Neuro: limited Vital Signs Reviewed: Yes Vital Signs Temp Pulse Resp BP Pulse Ox 08/02/18 05:16 84 18 134/90 99 04/29/18 04:00 86 18 137/85 98 04/29/18 03:46 93 H 16 136/88 98 04/29/18 00:05 98.3 F 97 H 18 134/86 96 Temperature: Afebrile Blood Pressure: Normal Pulse: Regular Respiratory Rate: Normal Appearance: Positive for: Other (intoxicated) Pain Distress: None Mental Status: Positive for: Alert and Oriented X 3 Medical Decision Making ED Course and Treatment: 04/29/18 00:16 Impression: 37 year old male with alcohol intoxication. Plan: -- Reassess and disposition Prior Visits: Notes and results from previous visits were reviewed. Patient was last seen in the emergency department on 04/08/2018 for alcohol intoxication. Patient was discharged after sobriety. Progress Notes: 04/29/18 05:24 patient is awake and alert, clinically sober, steady gait and stable for discharged. patient does not exhibit s/s of alcohol withdrawal. - Lab Interpretations Lab Results: Lab Results 04/29/18 02:42: POC Glucose (mg/dL) 105 - Scribe Statement The provider has reviewed the documentation as recorded by the Kirsten Salas Provider Scribe Attestation: All medical record entries made by the Constanceibchiquita were at my direction and personally dictated by me. I have reviewed the chart and agree that the record accurately reflects my personal performance of the history, physical exam, medical decision making, and the department course for this patient. I have also personally directed, reviewed, and agree with the discharge instructions and disposition. Disposition/Present on Arrival - Present on Arrival Any Indicators Present on Arrival: No History of DVT/PE: No History of Uncontrolled Diabetes: No Urinary Catheter: No History Surgical Site Infection Following: None - Disposition Have Diagnosis and Disposition been Completed?: Yes Diagnosis: Alcohol intoxication Disposition: HOME/ ROUTINE Disposition Time: 05:25 Patient Plan: Discharge Patient Problems: Current Active Problems Problem Status Onset Alcohol intoxication Acute Condition: STABLE Print Language: MONEGASQUE Referrals: FAMILY PROVIDER,NO [Primary Care Provider] - Follow up with primary
[2018-04-29 04:51] VITALS: RESP 18
[2018-04-29 05:17] VITALS: BP 134/90; PULSE 84; O2SAT 99
== END 2018-04-29 05:55 | disposition home or self-care (01) ==
LOC: ED 23:53
DX: F10.129 Alcohol abuse with intoxication, unspecified (principal)